=== PATIENT | male | born 1990 | race Caucasian/White ===

== ENCOUNTER 2018-09-22 17:23 | Inpatient (IN) | payer MEDICAID ==
[~2018-09-22] VITALS: Ht 175.3 cm; Wt 62.6 kg
[2018-09-22] MEDS ORDERED: SERT50TA12 PO (18:35)
[2018-09-22] MEDS ORDERED: TRAZ-252 PO (18:35)
[2018-09-22] MEDS ORDERED: CHOL50004 PO (18:35)
[2018-09-22] MEDS ORDERED: LORazepam 1 MG TABLET PO PRN (21:00)
[2018-09-22] MEDS ORDERED: ZOLPIDEM TARTRATE 10 MG TABLET PO PRN (21:00)
[2018-09-22] MEDS ORDERED: HALOPERIDOL 5 MG TABLET PO PRN (21:00)
[2018-09-22] MEDS ORDERED: NICOTINE 14 MG/24 HOUR PATCH TD PRN (21:15)
[2018-09-22] MEDS ORDERED: MAGNESIUM HYDROXIDE SUSPENSION 30 ML UDCUP PO PRN (21:15)
[2018-09-22] MEDS ORDERED: MAG HYDROX/AL HYDROX/SIMETH ES 30 ML SUSPENSION UDCUP PO PRN (21:15)
[2018-09-22] MEDS ORDERED: ACETAMINOPHEN 325 MG TABLET PO PRN (21:15)
[2018-09-22] MEDS ORDERED: PETROLATUM,WHITE 28 GM JELLY TP PRN (21:15)
[2018-09-22] MEDS ORDERED: DOCUSATE SODIUM 100 MG CAPSULE PO PRN (21:15)
[2018-09-22] MEDS ORDERED: LOPERAMIDE HCL 2 MG CAPSULE PO PRN (21:15)
[2018-09-22 22:01] VITALS: BP 114/69
[2018-09-22] MEDS: IBUPROFEN 400 MG TABLET PO PRN (22:05)
[2018-09-23] VITALS (13 sets, daily range): BP systolic 105–149; BP diastolic 53–82
[2018-09-23 08:08] LABS: BASOPHILS % (AUTO) 0.6 % (0.0-2.0); EOSINOPHILS % (AUTO) 3.1 % (1.0-6.0); HEMATOCRIT 35.5 % (41-53); HEMOGLOBIN 11.5 g/dL (13.5-17.5); LYMPHOCYTES # (AUTO) 2.9 K/uL (1.0-4.8); LYMPHOCYTES % (AUTO) 39.8 % (22.0-44.0); MEAN CORPUSCULAR HEMOGLOBIN 30.9 pg (26.0-34.0); MEAN CORPUSCULAR HGB CONC 32.4 G/dL (31.0-37.0); MEAN CORPUSCULAR VOLUME 95 fL (80-100); MONOCYTES # (AUTO) 0.5 K/uL (0.1-1.0); MONOCYTES % (AUTO) 6.9 % (2.0-9.0); NEUTROPHILS # (AUTO) 3.6 K/uL (1.8-7.7); NEUTROPHILS % (AUTO) 49.6 % (40.0-70.0); PLATELET COUNT (AUTO) 570 K/uL (150-450); RED BLOOD CELL COUNT(AUTO) 3.72 MIL/uL (4.50-5.90); RED CELL DISTRIBUTION WIDTH 14.4 % (11.5-14.5)
[2018-09-23] MEDS: NICOTINE 21 MG/24 HOUR PATCH TD SCH (08:09)
[2018-09-23] MEDS: IBUPROFEN 400 MG TABLET PO PRN (08:10)
[2018-09-23 08:20] LABS: HEMOGLOBIN A1C 4.8 % (4.5-6.2)
[2018-09-23 08:38] LABS: ALANINE AMINOTRANSFERASE 21 U/L (12-78); ALBUMIN 3.4 g/dL (3.4-5.0); ALKALINE PHOSPHATASE 72 U/L (46-116); ANION GAP 2 mmol/L (8-16); ASPARTATE AMINOTRANSFERASE 16 U/L (15-37); BILIRUBIN,TOTAL 0.5 mg/dL (0.1-1.0); CALCIUM, TOTAL 9.6 mg/dL (8.8-10.5); CARBON DIOXIDE 33 mmol/L (22-29); CHLORIDE 102 mmol/L (98-107); CHOL/HDL RATIO 2.5 (4.2-7.3); CHOLESTEROL 198 mg/dL (131-200); CREATININE 0.82 mg/dL (0.60-1.30); FREE T4 (FREE THYROXINE) 0.88 ng/dL (0.76-1.46); GLOMERULAR FILTR. RATE CALC > 60 mL/min (>60); GLUCOSE,RANDOM 102 mg/dL (70-110); HDL CHOLESTEROL 78 mg/dL (40-60); LDL CHOL (CALC.) 102 mg/dL (0-130); POTASSIUM 3.7 mmol/L (3.5-5.1); SODIUM SERUM 137 mmol/L (136-145); THYROID STIMULATING HORMONE 2.79 uIU/mL (0.36-3.74); TOTAL PROTEIN, SERUM 7.6 g/dL (6.4-8.2); TRIGLYCERIDES 91 mg/dL (15-150); UREA NITROGEN, BLOOD 20 mg/dL (7-18)
[2018-09-23] MEDS ORDERED: ChlordiazePOXIDE HCL 25 MG CAPSULE PO PRN (09:45)
[2018-09-23] MEDS: SERTRALINE HCL 50 MG TABLET PO SCH ×2 (09:47→16:20)
[2018-09-23] MEDS ORDERED: LOPERAMIDE HCL 2 MG CAPSULE PO PRN (10:00)
[2018-09-23] MEDS ORDERED: CYANOCOBALAMIN 1,000 MCG/ML VIAL IM ONE (10:00)
[2018-09-23] MEDS ORDERED: HydrOXYzine PAMOATE 50 MG CAPSULE PO PRN (10:00)
[2018-09-23] MEDS ORDERED: GuaiFENesin/D-METHORPHAN [SUGAR-FREE] 200-20MG/10 ML SYRUP UDCUP PO PRN (10:00)
[2018-09-23] MEDS: MULTIVITAMINS WITH MINERALS, THERAPEUTIC TABLET PO SCH (10:11)
[2018-09-23] MEDS: FOLIC ACID 1 MG TABLET PO SCH (10:11)
[2018-09-23] MEDS: THIAMINE HCL 100 MG TABLET PO SCH ×2 (10:11→16:20)
[2018-09-23] MEDS: TraZODone HCL 50 MG TABLET PO SCH (20:24)
[2018-09-24] VITALS (8 sets, daily range): BP systolic 98–121; BP diastolic 60–70
[2018-09-24] MEDS ORDERED: ChlordiazePOXIDE HCL 25 MG CAPSULE PO PRN (07:00)
[2018-09-24 08:13] LABS: AMPHET/METH SCREEN,URINE NEGATIVE (NEGATIVE); BARBITURATE SCREEN, URINE NEGATIVE (NEGATIVE); BENZODIAZEPINES SCREEN,URINE NEGATIVE (NEGATIVE); CANNABINOID SCREEN,URINE NEGATIVE (NEGATIVE); COCAINE SCREEN,URINE NEGATIVE (NEGATIVE); METHADONE SCREEN, URINE NEGATIVE (NEGATIVE); OPIATE SCREEN,URINE NEGATIVE (NEGATIVE)
[2018-09-24 08:18] LABS: PHENCYCLIDINE SCREEN,URINE NEGATIVE (NEGATIVE)
[2018-09-24 08:19] LABS: APPEARANCE,URINE CLEAR (CLEAR); BILIRUBIN,URINE NEGATIVE (NEGATIVE); GLUCOSE, URINE (UA) NEGATIVE (NEGATIVE); KETONES,URINE NEGATIVE (NEGATIVE); LEUKOCYTE ESTERASE ,URINE NEGATIVE (NEGATIVE); NITRATE,URINE NEGATIVE (NEGATIVE); OCCULT BLOOD,URINE NEGATIVE (NEGATIVE); PROTEIN,URINE NEGATIVE (NEGATIVE)
[2018-09-24] MEDS: ChlordiazePOXIDE HCL 25 MG CAPSULE PO SCH ×4 (09:22→20:17)
[2018-09-24] MEDS: CHOLECALCIFEROL (VIT D3) 5,000 UNITS CAPSULE PO SCH (09:22)
[2018-09-24] MEDS: THIAMINE HCL 100 MG TABLET PO SCH ×2 (09:22→16:36)
[2018-09-24] MEDS: MULTIVITAMINS WITH MINERALS, THERAPEUTIC TABLET PO SCH (09:22)
[2018-09-24] MEDS: FOLIC ACID 1 MG TABLET PO SCH (09:22)
[2018-09-24] MEDS: SERTRALINE HCL 50 MG TABLET PO SCH ×2 (09:22→16:36)
[2018-09-24] MEDS: NICOTINE 21 MG/24 HOUR PATCH TD SCH (09:23)
[2018-09-24] MEDS: TraZODone HCL 50 MG TABLET PO SCH (20:17)
[2018-09-25 05:18] VITALS: BP 109/60
[2018-09-25 05:19] VITALS: BP 109/60
[2018-09-25 08:01] VITALS: BP 106/61
[2018-09-25 08:18] VITALS: BP 106/61
[2018-09-25] MEDS: THIAMINE HCL 100 MG TABLET PO SCH ×2 (08:34→16:01)
[2018-09-25] MEDS: FOLIC ACID 1 MG TABLET PO SCH (08:34)
[2018-09-25] MEDS: MULTIVITAMINS WITH MINERALS, THERAPEUTIC TABLET PO SCH (08:34)
[2018-09-25] MEDS: ChlordiazePOXIDE HCL 25 MG CAPSULE PO SCH ×4 (08:34→20:04)
[2018-09-25] MEDS: SERTRALINE HCL 50 MG TABLET PO SCH ×2 (08:34→16:01)
[2018-09-25] MEDS: CHOLECALCIFEROL (VIT D3) 5,000 UNITS CAPSULE PO SCH (08:35)
[2018-09-25] MEDS: NICOTINE 21 MG/24 HOUR PATCH TD SCH (08:35)
[2018-09-25] MEDS: BACITRACIN 28.4 GM OINTMENT TP SCH ×2 (09:40→16:01)
[2018-09-25 16:14] VITALS: BP 126/61
[2018-09-25 18:30] VITALS: BP 126/61
[2018-09-25] MEDS: TraZODone HCL 50 MG TABLET PO SCH (20:04)
[2018-09-26] VITALS (7 sets, daily range): BP systolic 107–140; BP diastolic 63–92
[2018-09-26] MEDS ORDERED: ChlordiazePOXIDE HCL 10 MG CAPSULE PO PRN (07:00)
[2018-09-26] MEDS: FOLIC ACID 1 MG TABLET PO SCH (09:46)
[2018-09-26] MEDS: MULTIVITAMINS WITH MINERALS, THERAPEUTIC TABLET PO SCH (09:46)
[2018-09-26] MEDS: CHOLECALCIFEROL (VIT D3) 5,000 UNITS CAPSULE PO SCH (09:46)
[2018-09-26] MEDS: SERTRALINE HCL 50 MG TABLET PO SCH ×2 (09:47→16:53)
[2018-09-26] MEDS: BACITRACIN 28.4 GM OINTMENT TP SCH ×2 (09:47→16:54)
[2018-09-26] MEDS: ChlordiazePOXIDE HCL 10 MG CAPSULE PO SCH ×4 (09:47→20:21)
[2018-09-26] MEDS: THIAMINE HCL 100 MG TABLET PO SCH ×2 (09:47→16:53)
[2018-09-26] MEDS: NICOTINE 21 MG/24 HOUR PATCH TD SCH (09:47)
[2018-09-26] MEDS: TraZODone HCL 50 MG TABLET PO SCH (20:20)
[2018-09-27 00:29] VITALS: BP 103/60
[2018-09-27 01:02] VITALS: BP 103/60
[2018-09-27] MEDS ORDERED: ChlordiazePOXIDE HCL 10 MG CAPSULE PO PRN (07:00)
[2018-09-27 08:25] VITALS: BP 140/74
[2018-09-27] MEDS: THIAMINE HCL 100 MG TABLET PO SCH ×2 (08:31→16:15)
[2018-09-27] MEDS: MULTIVITAMINS WITH MINERALS, THERAPEUTIC TABLET PO SCH (08:31)
[2018-09-27] MEDS: CHOLECALCIFEROL (VIT D3) 5,000 UNITS CAPSULE PO SCH (08:31)
[2018-09-27] MEDS: NICOTINE 21 MG/24 HOUR PATCH TD SCH (08:31)
[2018-09-27] MEDS: FOLIC ACID 1 MG TABLET PO SCH (08:31)
[2018-09-27] MEDS: SERTRALINE HCL 50 MG TABLET PO SCH ×2 (08:31→16:15)
[2018-09-27] MEDS: BACITRACIN 28.4 GM OINTMENT TP SCH ×2 (08:48→17:00)
[2018-09-27 13:34] VITALS: BP 140/74
[2018-09-27 16:00] VITALS: BP 116/61
[2018-09-27 16:09] VITALS: BP 116/61
[2018-09-27] MEDS: SULFAMETHOX/TRIMETH DS 800-160 MG/TABLET PO SCH (16:15)
[2018-09-27] MEDS: CEPHALEXIN MONOHYDRATE 500 MG CAPSULE PO SCH (16:15)
[2018-09-27] MEDS ORDERED: CEPH500 PO (17:41)
[2018-09-27] MEDS ORDERED: TRIM100 PO (17:41)
[2018-09-27] MEDS: TraZODone HCL 50 MG TABLET PO SCH (21:09)
[2018-09-28 06:29] VITALS: BP 111/64
[2018-09-28] MEDS: SERTRALINE HCL 50 MG TABLET PO SCH ×2 (08:01→16:42)
[2018-09-28] MEDS: MULTIVITAMINS WITH MINERALS, THERAPEUTIC TABLET PO SCH (08:01)
[2018-09-28] MEDS: THIAMINE HCL 100 MG TABLET PO SCH ×2 (08:01→16:42)
[2018-09-28] MEDS: SULFAMETHOX/TRIMETH DS 800-160 MG/TABLET PO SCH ×2 (08:01→16:42)
[2018-09-28] MEDS: FOLIC ACID 1 MG TABLET PO SCH (08:01)
[2018-09-28] MEDS: CHOLECALCIFEROL (VIT D3) 5,000 UNITS CAPSULE PO SCH (08:01)
[2018-09-28] MEDS: CEPHALEXIN MONOHYDRATE 500 MG CAPSULE PO SCH ×3 (08:01→16:42)
[2018-09-28] MEDS: NICOTINE 21 MG/24 HOUR PATCH TD SCH (08:02)
[2018-09-28] MEDS: BACITRACIN 28.4 GM OINTMENT TP SCH ×2 (08:27→16:43)
[2018-09-28 12:25] VITALS: BP 111/60
[2018-09-28 16:00] VITALS: BP 115/66
[2018-09-28] MEDS: TraZODone HCL 50 MG TABLET PO SCH (20:08)
[2018-09-29 06:22] VITALS: BP 100/65
[2018-09-29] MEDS: FERROUS SULFATE 325 MG EC TABLET PO SCH ×2 (07:05→12:03)
[2018-09-29 08:05] VITALS: BP 110/61
[2018-09-29] MEDS: THIAMINE HCL 100 MG TABLET PO SCH (08:11)
[2018-09-29] MEDS: CEPHALEXIN MONOHYDRATE 500 MG CAPSULE PO SCH ×2 (08:11→12:03)
[2018-09-29] MEDS: CHOLECALCIFEROL (VIT D3) 5,000 UNITS CAPSULE PO SCH (08:12)
[2018-09-29] MEDS: FOLIC ACID 1 MG TABLET PO SCH (08:12)
[2018-09-29] MEDS: SULFAMETHOX/TRIMETH DS 800-160 MG/TABLET PO SCH (08:12)
[2018-09-29] MEDS: MULTIVITAMINS WITH MINERALS, THERAPEUTIC TABLET PO SCH (08:12)
[2018-09-29] MEDS: SERTRALINE HCL 50 MG TABLET PO SCH (08:12)
[2018-09-29] MEDS: NICOTINE 21 MG/24 HOUR PATCH TD SCH (08:13)
[2018-09-29] MEDS: BACITRACIN 28.4 GM OINTMENT TP SCH (09:24)
[2018-09-29] MEDS ORDERED: SERT50TA12 PO (12:15)
[2018-09-29] MEDS ORDERED: SULF1TAB42 PO (12:17)
[2018-09-29] MEDS ORDERED: FERR-89 PO (12:17)
[2018-09-29] MEDS ORDERED: FOLI1 PO (12:17)
[2018-09-29] MEDS ORDERED: VIT1TABL81 PO (13:42)
[2018-09-29] MEDS ORDERED: CEPH500 PO (13:42)
[2018-09-29] MEDS ORDERED: BACI30OI6 TP (13:42)
[2018-09-29] MEDS ORDERED: CHOL500045 PO (13:45)
[2018-09-29] MEDS ORDERED: MULT-1203 PO (13:45)
== END 2018-09-29 15:00 | disposition home or self-care (01) | DRG 751 ==
LOC: B2S 20:52
PROVIDERS: ADMIT Psychiatry & Neurology Child & Adolescent Psychiatry; ATTEND Psychiatry & Neurology Child & Adolescent Psychiatry
DX: F33.2 Major depressive disorder, recurrent severe without psychotic features (principal); D64.9 Anemia, unspecified; E55.9 Vitamin D deficiency, unspecified; F10.10 Alcohol abuse, uncomplicated; F19.10 Other psychoactive substance abuse, uncomplicated; F15.10 Other stimulant abuse, uncomplicated
CPT/HCPCS: 80307; 83036; 84439; 84443; 87081; J3420

== ENCOUNTER 2018-09-27 16:37 | Emergency (ER) | payer MEDICAID ==
[~2018-09-27] VITALS: Ht 175.3 cm; Wt 62.7 kg
[~2018-09-27 16:37] MED LIST: CHOL50004 PO; SERT50TA12 PO; TRAZ-252 PO
[2018-09-27] MEDS ORDERED: CEPH500 PO (17:41)
[2018-09-27] MEDS ORDERED: TRIM100 PO (17:41)
[2018-09-27] MEDS ORDERED: SULFAMETHOX/TRIMETH DS 800-160 MG/TABLET PO ONE (18:15)
[2018-09-27 19:30] VITALS: BP 115/79
== END 2018-09-27 19:20 | disposition home or self-care (01) ==
LOC: EMS 16:38
DX: T81.31XA Disruption of external operation (surgical) wound, not elsewhere classified, initial encounter (principal); F32.9 Major depressive disorder, single episode, unspecified; F17.210 Nicotine dependence, cigarettes, uncomplicated; F19.90 Other psychoactive substance use, unspecified, uncomplicated; Y92.89 Other specified places as the place of occurrence of the external cause
CPT/HCPCS: 87070; 87205